=== PATIENT | male | born 1940 | race Caucasian/White ===

== ENCOUNTER 2018-11-03 04:37 | Emergency (ER) | payer SELFPAY ==
[~2018-11-03] VITALS: Ht 180.3 cm; Wt 65.8 kg
--- NOTE | 2018-11-03 04:45 | NUR ---
Pt bib RA 88. Per paramedics, they received a second libertarian call and perceived the patient to have AMS. Pt comes from home, paramedics states that the patient's living situation is disorganized and cluttered. Pt states that he lives with his who is currently in [place]. Pt arrives to ER and appears to be unkempt. Pt is AAO x 4 and states that he was supposed to go to [facility] d/t problems with balance. Pt noted to have IV on left ac 18 gauge. Pt placed on monitor. Safe environment implemented.
--- NOTE | 2018-11-03 04:55 | NUR ---
Dr. Harrison PALACIOS MD at bedside for MSE.
[2018-11-03] MEDS ORDERED: IV NORMAL SALINE 1000 ML BAG IV ONE (05:00)
--- NOTE | 2018-11-03 05:20 | NUR ---
Pt is refusing to have blood work, CT and chest xray done. Pt states that he does not want to receive any care at this time. ER made aware.
[2018-11-03 05:37] LABS: *BILIRUBIN,URIN NEGATIVE (NEGATIVE); *BLOOD, URINE Trace-intact (NEGATIVE); *CLARITY,URINE CLEAR (CLEAR); *COLOR,URINE YELLOW (YELLOW); *KETONES,URINE NEGATIVE (NEGATIVE); *PROTEIN,URINE NEGATIVE (NEGATIVE); *UROBILINOGEN,URINE 0.2 E.U./dl (NORMAL); LEUKOCYTE ESTERASE ,URINE NEGATIVE (NEGATIVE); NITRITE, URINE NEGATIVE (NEGATIVE); UGLUCOSE NEGATIVE (NEGATIVE)
--- NOTE | 2018-11-03 05:39 | NUR ---
Patient does not wish to proceed with medical care recommended by Dr. Terry. Patient given information related to possible complications, up to and including , which could occur as a result of leaving the hospital at this time. Patient verbalizes understanding of risks involved due to leaving against medical advice. Patient has signed AMA form.
[2018-11-03 05:41] LABS: BACTERIA,URINE NONE SEEN /HPF (NONE SEEN); SQUAMOUS EPITHELIAL CELL,UR NONE SEEN /HPF (NONE SEEN); WBC,URINE 0-3 /HPF (0-3)
--- NOTE | 2018-11-03 05:42 | NUR ---
Pt is on his cellphone making calls for someone to pick him up.
[2018-11-03 05:49] LABS: *AMPHETAMINE, URINE NEGATIVE (NEGATIVE); *BARBITURATE, URINE NEGATIVE (NEGATIVE); *CANNABINOID, URINE NEGATIVE (NEGATIVE); *COCCAINE, URINE NEGATIVE (NEGATIVE); *OPIATE, URINE NEGATIVE (NEGATIVE); *PHENCYCLIDINE SCREEN,URINE NEGATIVE (NEGATIVE)
--- NOTE | 2018-11-03 05:50 | NUR ---
IV removed. Catheter intact and site benign. Pressure and 4x4 gauze applied to site. No bleeding noted.
--- NOTE | 2018-11-03 06:12 | NUR ---
Pt brought to waiting room via wheelchair, states that he has an [employer] to pick him up. Signed out AMA.
== END 2018-11-03 06:30 | disposition left against medical advice (07) ==
LOC: ER 04:46
DX: R41.82 Altered mental status, unspecified (principal); I11.0 Hypertensive heart disease with heart failure; I50.9 Heart failure, unspecified; J44.9 Chronic obstructive pulmonary disease, unspecified; E11.9 Type 2 diabetes mellitus without complications; I25.10 Atherosclerotic heart disease of native coronary artery without angina pectoris; I25.2 Old myocardial infarction
CPT/HCPCS: 80307; 87086; 93005; A4663; J7030